=== PATIENT | male | born 1990 | race African-American/Black ===

== ENCOUNTER 2018-02-08 14:10 | Emergency (ER) | payer OTHER ==
[~2018-02-08] VITALS: Ht 170.2 cm; Wt 68.0 kg
[2018-02-08] MEDS ORDERED: AMOXICILLIN 50500 MG PO (15:05)
[2018-02-08] MEDS ORDERED: ACETAMINOPHEN-1 EAC1 PO (15:05)
[2018-02-08] MEDS ORDERED: LIDOCAINE VISC100 ML PO (15:05)
[2018-02-08 15:18] VITALS: BP 166/111
== END 2018-02-08 15:19 | disposition home or self-care (01) ==
LOC: M.ERS 14:10
DX: K08.89 Other specified disorders of teeth and supporting structures (principal); F17.210 Nicotine dependence, cigarettes, uncomplicated